=== PATIENT | female | born 1965 | race Caucasian/White ===

== ENCOUNTER 2017-11-03 15:48 | Emergency (ER) | payer OTHER ==
[2017-11-03 15:59] VITALS: BP 99/68
--- NOTE | 2017-11-03 16:06 | EDPHY ---
H & P Time Seen by Provider: 11/03/17 16:00 HPI/ROS: CHIEF COMPLAINT: Left wrist pain History by patient HISTORY OF PRESENT ILLNESS: 52-year-old left hand dominant woman presents complaining of pain in her left wrist after fall on an outstretched hand yesterday when she slipped on some wet grass at work. She has taken ibuprofen, iced it and taken a single bike again all which have given her some relief. Pain is worse when she volar flexes her wrist. Pain is mostly located to the radial side. REVIEW OF SYSTEMS: As in HPI, and all other systems reviewed and are negative Smoking Status: Never smoked Physical Exam: General Appearance: Alert and no distress. Head: Normocephalic, atraumatic Eyes: Pupils equal and round no injection. Extraocular movements are intact. Musculoskeletal: Neck is supple and nontender. Extremities: Left 5th with mild swelling over radial aspect, full range of motion with pain, radial pulses 2+ and equal to the left, distal sensation is intact, distal cap refills less than 2 sec, positive tenderness over distal radius. No ulnar styloid tenderness. No snuffbox tenderness. Full range of motion of all fingers against resistance. Skin: No rashes or lesions except as described above. Constitutional: Initial Vital Signs Temperature (C) 36.5 C 11/03/17 15:55 Heart Rate 95 11/03/17 15:55 Respiratory Rate 18 11/03/17 15:55 Blood Pressure 99/68 L 11/03/17 15:55 O2 Sat (%) 95 11/03/17 15:55 O2 Delivery Mode Room Air Allergies/Adverse Reactions: Penicillins Allergy (Verified 11/03/17 15:54) Home Medications: Medication Instructions Recorded Lamictal 11/03/17 Latuda 11/03/17 traZODone 11/03/17 MDM/Departure - MDM Imaging: I viewed and interpreted images myself ED Course/Re-evaluation: 52-year-old woman presents with left wrist injury after fall on outstretched arm yesterday. There is no obvious deformity on exam. X-ray shows no evidence of acute fracture. I suspected wrist sprain. We discussed home care and conservative measures such as rest, ice, ibuprofen. Patient has been wearing [id number] wrist brace which makes her feel better which she may continue to wear for support until her wrist is improved. - Depart Disposition: Home, Routine, Self-Care Clinical Impression: Unspecified sprain of left wrist, initial encounter Condition: Good Instructions: Wrist Sprain (ED) Additional Instructions: You were seen by Dr. Roseanna Dejesus today. I recommend ibuprofen 600 mg with meals and at bedtime as needed for pain. Continue to ice the wrist. You may wear the support if it makes you feel better. Return for any worsening or new concerns. Stand Alone Forms: Work Excuse Referrals: NONE *PRIMARY CARE P,. [Primary Care Provider] - As per Instructions
== END 2017-11-03 16:30 | disposition home or self-care (01) ==
LOC: CED 15:48
DX: S63.502A Unspecified sprain of left wrist, initial encounter (principal); W01.0XXA Fall on same level from slipping, tripping and stumbling without subsequent striking against object, initial encounter; Y92.69 Other specified industrial and construction area as the place of occurrence of the external cause; Y99.0 Civilian activity done for income or pay; Y93.89 Activity, other specified
CPT/HCPCS: 73110-PO